=== PATIENT | female | born 2000 | race African-American/Black ===

== ENCOUNTER 2025-06-08 12:27 | Emergency (ER) | payer MEDICAID ==
[~2025-06-08] VITALS: Ht 165.1 cm; Wt 64.0 kg
[2025-06-08 12:30] VITALS: O2SAT 100
[2025-06-08] MEDS: LIDOCAINE HCL/EPINEPHRINE 1%-EPI 1:100,000 20ML VIAL INFIL ONE (15:00)
[2025-06-08] MEDS ORDERED: NEOM28.43 TP (15:05)
[2025-06-08] MEDS ORDERED: ACET-2708 MT (15:05)
[2025-06-08 15:36] VITALS: BP 116/73; PULSE 87; RESP 18; TEMP 36.7; O2SAT 100
== END 2025-06-08 15:37 | disposition home or self-care (01) ==
LOC: ER 13:00
DX: S01.01XA Laceration without foreign body of scalp, initial encounter (principal); S09.90XA Unspecified injury of head, initial encounter; Z79.899 Other long term (current) drug therapy; W22.8XXA Striking against or struck by other objects, initial encounter; Y93.89 Activity, other specified; Y92.89 Other specified places as the place of occurrence of the external cause; Y99.8 Other external cause status
CPT/HCPCS: 99283; 12002; J2004

== ENCOUNTER 2025-07-08 11:57 | Emergency (ER) | payer MEDICAID ==
[~2025-07-08] VITALS: Ht 162.6 cm; Wt 69.0 kg
[~2025-07-08 11:57] MED LIST: ACET-2708 MT; NEOM28.43 TP
[2025-07-08 12:01] VITALS: BP 111/61; RESP 18; TEMP 36.9; O2SAT 100
[2025-07-08 12:05] VITALS: PULSE 75; O2SAT 98
== END 2025-07-08 14:23 | disposition home or self-care (01) ==
LOC: ER 11:58
DX: S01.81XD Laceration without foreign body of other part of head, subsequent encounter (principal); Z79.899 Other long term (current) drug therapy; X58.XXXD Exposure to other specified factors, subsequent encounter
CPT/HCPCS: 99281; A4606